=== PATIENT | female | born 1980 | race Caucasian/White ===

== ENCOUNTER 2017-02-18 23:48 | Emergency (ER) | payer MEDICAID ==
[2017-02-19 00:29] LABS: BASOPHILS # (AUTO) 0.1 10^3/uL (0.0-0.1); BASOPHILS % (AUTO) 1.3 %; EOSINOPHILS # (AUTO) 0.1 10^3/uL (0.0-0.7); EOSINOPHILS % (AUTO) 1.7 %; HCT - HEMATOCRIT 36.7 % (37.0-47.0); HGB - HEMOGLOBIN 12.3 g/dL (12.0-16.0); LYMPHOCYTES # (AUTO) 1.9 10^3/uL (1.5-3.5); LYMPHOCYTES % (AUTO) 28.1 %; MEAN CORPUSCULAR HEMOGLOBIN 27.8 pg (27.0-31.0); MEAN CORPUSCULAR HGB CONC 33.5 g/dL (32.0-36.0); MEAN CORPUSCULAR VOLUME 82.9 fL (81.0-99.0); MEAN PLATELET VOLUME 9.3 fL (7.9-10.8); MONOCYTES # (AUTO) 0.7 10^3/uL (0.0-1.0); MONOCYTES % (AUTO) 10.6 %; NEUTROPHILS # (AUTO) 3.9 10^3/uL (1.5-6.6); NEUTROPHILS % (AUTO) 58.3 %; RED BLOOD COUNT 4.43 10^6/uL (4.20-5.40); RED CELL DISTRIBUTION WIDTH 15.9 % (12.0-15.0); UNCORRECTED WHITE BLOOD COUNT 6.7 x10^3/uL; WHITE BLOOD COUNT 6.7 x10^3/uL (4.8-10.8)
[2017-02-19 00:30] LABS: BILIRUBIN,URINE NEGATIVE (NEGATIVE)
[2017-02-19 00:31] LABS: HCG UR QUAL NEGATIVE; UA CHARGE (STRIP ONLY) YES; UR CULTURE IF IND NOT INDICATED
[2017-02-19 00:40] LABS: ALBUMIN/GLOBULIN RATIO 1.4 (1.0-2.2); BILIRUBIN,TOTAL 0.4 mg/dL (0.2-1.0); CALCIUM 9.3 mg/dL (8.5-10.3); CREATININE 0.6 mg/dL (0.4-1.0); POTASSIUM 3.6 mmol/L (3.5-5.0); TOTAL PROTEIN 7.1 g/dL (6.7-8.2)
--- NOTE | 2017-02-19 01:28 | Ultrasound Preliminary Report ---
Exam: US Abdomen Limited IMPRESSION: Negative right upper quadrant ultrasound. [facility] SITE ID: [id number]
--- NOTE | 2017-02-19 01:31 | Ultrasound Report ---
EXAM: ABDOMEN ULTRASOUND LIMITED, RUQ EXAM DATE: 02/19/2017 01:10 AM. CLINICAL HISTORY: Right upper quadrant pain. COMPARISON: None. TECHNIQUE: Real-time scanning was performed with static images obtained. FINDINGS: Liver: Echotexture within normal limits without suspicious abnormality seen. Main portal vein flow: H epatopetal. Gallbladder: No stones, wall thickening, or sonographic Martínez's sign. Biliary System: CBD measures 3 mm. No intrahepatic or extrahepatic ductal dilatation. Other: Suboptimal due to reported inability to suspend respirations. Visualized portions of the pancr eas and right kidney are unremarkable. IMPRESSION: Negative right upper quadrant ultrasound. [facility] Referring Provider Line: [phone] SITE ID: [id number]
--- NOTE | 2017-02-19 01:46 | ED Physician Documentation ---
PD HPI ABD PAIN - Stated complaint Stated Complaint: ABD PX,BACK PX - Chief complaint Chief Complaint: Abd Pain - History obtained from History obtained from: Patient, Friend - History of Present Illness Timing - onset: How many minutes ago (45) Timing - details: Abrupt onset, Still present Quality: Sharp, Stabbing Location: RUQ Radiation: Right shoulder Worsened by: Position, Palpation Associated symptoms: No: Nausea, Vomiting, Diarrhea, Constipation, Dysuria, Hematuria Similar symptoms before: Has not had sx before Recently seen: Not recently seen - Additional information Additional information: Patient is a 36 year old female with no significant past medical history who is presenting to the emergency department for abdominal pain. Patietn states that after having sex this evening she developed right upper quadrant pain. It is worse with palpation and movement and radiates to the back. Patient denies ever having anything like this before. Review of Systems Constitutional: denies: Fever, Chills Ears: denies: Ear pain Nose: denies: Rhinorrhea / runny nose, Congestion Throat: denies: Dental pain / toothache, Sore throat Cardiac: denies: Chest pain / pressure, Calf pain Respiratory: denies: Dyspnea, Cough, Wheezing GI: reports: Abdominal Pain. denies: Abdominal Swelling, Nausea, Vomiting, Constipation, Diarrhea : denies: Dysuria, Frequency, Hematuria, Discharge, Vaginal bleeding Musculoskeletal: denies: Neck pain, Back pain Neurologic: denies: Generalized weakness, Focal weakness Immunocompromised: denies: Immunocompromised PD PAST MEDICAL HISTORY - Past Medical History Past Medical History: No - Past Surgical History Past Surgical History: No - Social History Does the pt smoke?: No Smoking Status: Never smoker Does the pt drink ETOH?: No Does the pt have substance abuse?: No PD ED PE NORMAL - Vitals Vital signs reviewed: Yes - General General: Alert and oriented X 3, No acute distress, Well developed/nourished - HEENT HEENT: Atraumatic, PERRL - Neck Neck: Supple, no meningeal sign - Cardiac Cardiac: RRR, No murmur - Respiratory Respiratory: No respiratory distress, Clear bilaterally - Abdomen Abdomen: Soft - Back Back: No CVA TTP - Derm Derm: Normal color, Warm and dry, No rash - Extremities Extremities: No deformity - Neuro Neuro: Alert and oriented X 3, No motor deficit, No sensory deficit - Psych Psych: Normal mood, Normal affect PD ED PE EXPANDED - Abdomen Abdomen: Tender to palpation, RUQ. No: Rebound, Guarding Results - Vitals Vitals: Vital Signs - 24 hr 02/18/17 02/19/17 23:55 01:51 Temperature 37.2 C Heart Rate 75 71 Respiratory 17 16 Rate Blood Pressure 146/110 H 129/76 O2 Saturation 98 100 Oxygen O2 Source Room air - Labs Labs: Laboratory Tests 02/19/17 02/19/17 02/19/17 00:05 00:20 00:20 WBC 6.7 RBC 4.43 Hgb 12.3 Hct 36.7 L MCV 82.9 MCH 27.8 MCHC 33.5 RDW 15.9 H Plt Count 226 MPV 9.3 Neut # 3.9 Lymph # 1.9 Door # 0.7 Eos # 0.1 Baso # 0.1 Absolute Nucleated RBC 0.00 Nucleated RBCs 0.0 Sodium 137 Potassium 3.6 Chloride 103 Carbon Dioxide 27 Anion Gap 7.0 BUN 9 Creatinine 0.6 Estimated GFR (MDRD) 114 Glucose 105 H Calcium 9.3 Total Bilirubin 0.4 AST 20 ALT 16 Alkaline Phosphatase 62 Total Protein 7.1 Albumin 4.2 Globulin 2.9 Albumin/Globulin Ratio 1.4 Lipase 26 Urine Color YELLOW Urine Clarity CLEAR Urine pH 7.0 Ur Specific [place] 1.015 Urine Protein NEGATIVE Urine Glucose (UA) NEGATIVE Urine Ketones NEGATIVE Urine Occult Blood NEGATIVE Urine Nitrite NEGATIVE Urine Bilirubin NEGATIVE Urine Urobilinogen 0.2 (NORMAL) Ur Leukocyte Esterase NEGATIVE Ur Microscopic Review NOT INDICATED Urine Culture Comments NOT INDICATED Urine HCG, Qual NEGATIVE - Rads (name of study) abd ultrasound Radiology: Final report received (no acute abnormality) PD MEDICAL DECISION MAKING - ED course Complexity details: reviewed results, re-evaluated patient, considered differential, d/w patient ED course: Patient was seen and examined at bedside. Labs were drawn and urine was collected. ultrasound was ordered. When patient's diagnostics came back they were within normal limits. Patient's pain was likely musculoskeletal in nature. When patient was made aware that it might be a muscle strain, she stated that that was definitely a possibility. Patient required no further work up and was stable for discharge with outpatient follow up. Departure - Departure Disposition: 01 Home, Self Care Clinical Impression: Abdominal muscle strain Condition: Good Instructions: ED Strain Abdominal Muscle Follow-Up: primary,care provider [Other] Comments: Your diagnostics today were within normal limits. Your pain is likely secondary to a strained abdominal wall muscle. You can take motrin or tylenol as needed for pain. You should follow up with your pmd if your symptoms persist or worsen. Discharge Date/Time: 02/19/17 01:52
[2017-02-19 01:52] VITALS: BP 129/76
== END 2017-02-19 01:52 | disposition home or self-care (01) ==
LOC: ED 23:48
DX: S39.011A Strain of muscle, fascia and tendon of abdomen, initial encounter (principal); X58.XXXA Exposure to other specified factors, initial encounter
CPT/HCPCS: 36415; 76705; 80053; 81001; 81003; 81025; 83690; 85025; 87086; 99283